=== PATIENT | female | born 1995 | race African-American/Black ===

== ENCOUNTER 2019-06-16 03:25 | Emergency (ER) | payer SELFPAY ==
[~2019-06-16] VITALS: Ht 172.7 cm; Wt 77.0 kg
[2019-06-16 05:10] LABS: BASOPHILS % 0.6 % (0.0-2.0); EOSINOPHILS % 0.6 % (0.0-5.0); HEMATOCRIT. 35.7 % (36.0-48.0); HEMOGLOBIN. 11.7 g/dL (12.0-16.0); LYMPHOCYTES % 37.1 % (20.0-50.0); MEAN CORPUSCULAR HEMOGLOBIN 28.8 pg (28.0-32.0); MEAN CORPUSCULAR VOLUME 87.6 fL (81.0-99.0); MONOCYTES % 9.5 % (2.0-8.0); NEUTROPHILS % 52.2 % (40.0-76.0); PLATELET 321 x1000/uL (130-400); RED BLOOD CELL COUNT 4.08 mill/uL (4.2-5.4); RED CELL DISTRIBUTION WIDTH 15.4 % (11.6-14.6)
[2019-06-16 05:13] LABS: CHLORIDE 108 mEq/L (98-107)
[2019-06-16 05:16] LABS: ETHANOL BLOOD 293 mg/dL
[2019-06-16 05:17] LABS: HCG SCREEN NEGATIVE
[2019-06-16 08:00] VITALS: BP 114/78
== END 2019-06-16 08:20 | disposition left against medical advice (07) ==
LOC: ER 03:25
DX: F10.129 Alcohol abuse with intoxication, unspecified (principal); Y90.8 Blood alcohol level of 240 mg/100 ml or more
CPT/HCPCS: 36415; 80048; 80307; 80320; 80329; 84703; 99283; G0480